=== PATIENT | female | born 1995 | race Caucasian/White ===

== ENCOUNTER 2020-10-21 14:01 | Inpatient (IN) | payer MEDICAID, SELFPAY ==
[2020-10-21 14:45] LABS: Amnisure Test RUPTURE DETECTED (No Rupture)
[2020-10-21 14:50] VITALS: BMI 34.2
[2020-10-21] MEDS ORDERED: Lidocaine 1% (PF) 30 ML VIAL SC PRN (15:40)
[2020-10-21] MEDS ORDERED: Ondansetron PF 4 MG/2 ML Vial IVP PRN (15:40)
[2020-10-21] MEDS ORDERED: hydrALAZINE 20 MG/ML VIAL SLOW IVP PRN (15:40)
[2020-10-21] MEDS ORDERED: Lactated Ringer's 1,000 ML IV SCH (15:45)
[2020-10-21] MEDS ORDERED: NS w/ Oxytocin 30 units 500 ML IVPB PRN (15:53)
[2020-10-21] MEDS ORDERED: Betamet Acet/Betamet Na Ph 30 MG/5 ML VIAL IM SCH (16:00)
[2020-10-21] MEDS ORDERED: Azithromycin 1,000 MG in Sodium Chloride 0.9% 500 ML IVPB SCH ×2 (16:00→17:00)
[2020-10-21] MEDS: Lactated Ringer's 1,000 ML IV SCH (17:15)
[2020-10-21] MEDS: Dexamethasone 4 mg/ml Vial IM SCH (18:22)
[2020-10-21 18:30] LABS: Hemoglobin 12.3 g/dL (12.0-15.5); Mean Corpuscular Hemoglobin 26.3 pg (27.0-33.0); Mean Corpuscular Volume 82.2 fl (81.6-98.3); Platelet Count 315 10x3/uL (150-450); RBC Distribution Width 14.3 % (11.5-14.5); Red Blood Cell (RBC) Count 4.67 10x6/uL (3.90-5.03); White Blood Cell (WBC) Count 9.1 10x3/uL (3.5-10.5)
[2020-10-21 19:04] LABS: Hep B Surf Ag Non-Reactive S/CO (NonReactive)
[2020-10-21 19:05] LABS: Syphilis Antibody Nonreactive (Nonreactive); Syphilis Antibody Index 0.02 S/CO (<1.00 Non-Reactive)
[2020-10-21 19:23] LABS: HBSAg Index 0.19 S/CO (0-0.99)
[2020-10-21] MEDS: Ampicillin 2 GM in Sodium Chloride 0.9% 100 ML IVPB SCH (20:08)
[2020-10-22] MEDS: Ampicillin 2 GM in Sodium Chloride 0.9% 100 ML IVPB SCH ×4 (02:07→18:54)
[2020-10-22] MEDS: Lactated Ringer's 1,000 ML IV SCH ×2 (02:08→08:02)
[2020-10-22] MEDS: Dexamethasone 4 mg/ml Vial IM SCH ×2 (06:06→18:54)
[2020-10-23] MEDS: Ampicillin 2 GM in Sodium Chloride 0.9% 100 ML IVPB SCH ×4 (03:00→19:03)
[2020-10-23] MEDS: Dexamethasone 4 mg/ml Vial IM SCH (06:54)
[2020-10-23] MEDS: Lactated Ringer's 1,000 ML IV SCH ×4 (09:34→15:50)
[2020-10-23] MEDS: AMOXicillin 250 MG CAP PO SCH (21:43)
[2020-10-24] MEDS: Lactated Ringer's 1,000 ML IV SCH ×4 (02:30→22:02)
[2020-10-24] MEDS: AMOXicillin 250 MG CAP PO SCH ×3 (06:07→19:54)
[2020-10-25] MEDS: AMOXicillin 250 MG CAP PO SCH ×3 (05:41→21:06)
[2020-10-25] MEDS: Lactated Ringer's 1,000 ML IV SCH ×3 (05:41→21:07)
[2020-10-26] MEDS: AMOXicillin 250 MG CAP PO SCH ×3 (05:14→22:02)
[2020-10-26] MEDS: Lactated Ringer's 1,000 ML IV SCH ×3 (05:15→22:02)
[2020-10-27] MEDS: AMOXicillin 250 MG CAP PO SCH ×3 (06:50→22:34)
[2020-10-27] MEDS: Lactated Ringer's 1,000 ML IV SCH ×3 (06:50→22:35)
[2020-10-28] MEDS: AMOXicillin 250 MG CAP PO SCH ×3 (05:47→21:28)
[2020-10-28] MEDS: Lactated Ringer's 1,000 ML IV SCH ×3 (09:39→21:29)
[2020-10-28] MEDS ORDERED: Lidocaine 1% (PF) 30 ML VIAL SC PRN (23:56)
[2020-10-28] MEDS ORDERED: Promethazine HCl 25 MG/ML VIAL IM PRN (23:56)
[2020-10-28] MEDS ORDERED: hydrALAZINE 20 MG/ML VIAL SLOW IVP PRN (23:56)
[2020-10-28] MEDS ORDERED: Ondansetron PF 4 MG/2 ML Vial IVP PRN (23:56)
[2020-10-28] MEDS ORDERED: NS / Oxytocin 40 units/1000ml 1,000 ML IV PRN (23:56)
[2020-10-29] MEDS: Misoprostol 100 MCG TAB VAG SCH ×6 (02:01→22:31)
[2020-10-29 07:46] LABS: Hemoglobin 11.6 g/dL (12.0-15.5); Mean Corpuscular Hemoglobin 26.8 pg (27.0-33.0); Mean Corpuscular Volume 83.6 fl (81.6-98.3); Mean Platelet Volume 9.8 fl (7.4-10.4); Platelet Count 256 10x3/uL (150-450); RBC Distribution Width 14.6 % (11.5-14.5); Red Blood Cell (RBC) Count 4.33 10x6/uL (3.90-5.03); White Blood Cell (WBC) Count 8.1 10x3/uL (3.5-10.5)
[2020-10-29] MEDS: Lactated Ringer's 1,000 ML IV SCH ×2 (08:25→18:23)
[2020-10-30] MEDS ORDERED: NS w/ Oxytocin 30 units 500 ML ONE (01:27)
[2020-10-30] MEDS: AMOXicillin 250 MG CAP PO SCH ×2 (02:33→14:29)
[2020-10-30] MEDS: Misoprostol 100 MCG TAB VAG SCH ×3 (02:36→14:30)
[2020-10-30] MEDS: Butorphanol Tartrate 1 MG/ML VIAL SLOW IVP PRN ×2 (03:50→06:41)
[2020-10-30] MEDS ORDERED: Fentanyl 4 mcg/Bup 0.1% Cadd 100 ML ONE (07:55)
[2020-10-30] MEDS ORDERED: Ondansetron PF 4 MG/2 ML Vial IVP PRN ×2 (08:35→12:40)
[2020-10-30] MEDS ORDERED: Naloxone HCl 0.4 mg/ml Vial IVP PRN ×2 (08:35)
[2020-10-30] MEDS: Lactated Ringer's 1,000 ML IV SCH (08:35)
[2020-10-30] MEDS ORDERED: Acetaminophen 325 MG TAB PO PRN (08:35)
[2020-10-30] MEDS ORDERED: diphenhydrAMINE 50 MG/ML VIAL IVP PRN (08:35)
[2020-10-30] MEDS ORDERED: Lactated Ringer's 500 ML IV PRN (08:35)
[2020-10-30] MEDS ORDERED: Promethazine HCl 25 MG/ML VIAL IM PRN ×2 (08:35→12:40)
[2020-10-30] MEDS ORDERED: ePHEDrine Sulfate 50 MG/10 ML VIAL SLOW IVP PRN (08:42)
[2020-10-30] MEDS ORDERED: Fentanyl 4 mcg/Bupivacaine 0.1% Cassette 100 ML EPIDURAL SCH (08:45)
[2020-10-30] MEDS ORDERED: Communication Order-Pharmacy FS SCH (08:45)
[2020-10-30] MEDS ORDERED: NS / Oxytocin 40 units/1000ml 1,000 ML IV SCH (12:40)
[2020-10-30] MEDS ORDERED: Misoprostol 200 MCG TAB VAG PRN (12:40)
[2020-10-30] MEDS ORDERED: Adacel (T-DAP) 0.5 ML SYRINGE IM ONE (12:40)
[2020-10-30] MEDS ORDERED: Bisacodyl 10 MG SUPP PR PRN (12:40)
[2020-10-30] MEDS ORDERED: diphenhydrAMINE 25 MG CAP PO PRN (12:40)
[2020-10-30] MEDS ORDERED: hydrALAZINE 20 MG/ML VIAL SLOW IVP PRN (12:40)
[2020-10-30] MEDS ORDERED: Milk Of Magnesia 30 ML UDCUP PO PRN (12:40)
[2020-10-30] MEDS ORDERED: Lanolin Ointment 7 GM TUBE TOP PRN (12:40)
[2020-10-30] MEDS: Ibuprofen 800 MG TAB PO SCH (14:59)
[2020-10-30] MEDS: Ferrous Sulfate 325 MG TAB PO SCH (18:07)
[2020-10-30] MEDS: Docusate Calcium (SURFAK) 240 MG CAP PO SCH (21:22)
[2020-10-31] MEDS: Ibuprofen 800 MG TAB PO SCH ×4 (00:45→21:43)
[2020-10-31] MEDS ORDERED: Morphine 4 MG/ML VIAL SLOW IVP PRN (09:03)
[2020-10-31] MEDS ORDERED: Morphine 2 MG/ML VIAL SLOW IVP PRN (09:10)
[2020-10-31] MEDS: Docusate Calcium (SURFAK) 240 MG CAP PO SCH ×2 (09:22→21:43)
[2020-10-31] MEDS: Prenatal Vitamin 1 TAB PO SCH (09:22)
[2020-10-31] MEDS: Ferrous Sulfate 325 MG TAB PO SCH ×2 (09:22→21:47)
[2020-10-31 09:34] LABS: #Eosinphils 0.1 10x3/uL (0.0-0.5); #Monocytes 0.8 10x3/uL (0.0-1.1); #Neutrophils 11.4 10x3/uL (1.5-8.4); %Basophils 0.3 % (0.0-2.0); %Eosinophils 0.6 % (0.0-6.0); %Lymphocytes 16.9 % (18.0-47.0); %Neutrophils 75.8 % (40.0-75.0); Hemoglobin 11.4 g/dL (12.0-15.5); Mean Corpuscular HGB CONC 32.1 g/dL (32.0-36.0); Mean Corpuscular Hemoglobin 26.7 pg (27.0-33.0); Mean Corpuscular Volume 83.1 fl (81.6-98.3); Mean Platelet Volume 10.1 fl (7.4-10.4); Platelet Count 234 10x3/uL (150-450); RBC Distribution Width 15.6 % (11.5-14.5); Red Blood Cell (RBC) Count 4.27 10x6/uL (3.90-5.03); White Blood Cell (WBC) Count 15.1 10x3/uL (3.5-10.5)
[2020-10-31] MEDS: Ampicillin/Sulbactam 3 GM in Sodium Chloride 0.9% 100 ML IVPB SCH (23:09)
[2020-11-01] MEDS: Ibuprofen 800 MG TAB PO SCH ×3 (05:29→22:07)
[2020-11-01] MEDS: Ampicillin/Sulbactam 3 GM in Sodium Chloride 0.9% 100 ML IVPB SCH ×4 (05:29→22:07)
[2020-11-01] MEDS: Docusate Calcium (SURFAK) 240 MG CAP PO SCH ×2 (08:21→22:06)
[2020-11-01] MEDS: Prenatal Vitamin 1 TAB PO SCH (08:21)
[2020-11-01] MEDS: Ferrous Sulfate 325 MG TAB PO SCH ×2 (11:29→17:11)
[2020-11-02] MEDS: Ibuprofen 800 MG TAB PO SCH ×2 (05:32→14:09)
[2020-11-02] MEDS: Ampicillin/Sulbactam 3 GM in Sodium Chloride 0.9% 100 ML IVPB SCH ×2 (05:32→11:37)
[2020-11-02 07:57] VITALS: BP 117/73; TEMP 98.8
[2020-11-02] MEDS: Ferrous Sulfate 325 MG TAB PO SCH (08:46)
[2020-11-02] MEDS: Docusate Calcium (SURFAK) 240 MG CAP PO SCH (08:47)
[2020-11-02] MEDS: Prenatal Vitamin 1 TAB PO SCH (08:47)
== END 2020-11-02 17:17 | disposition home or self-care (01) | DRG 805 ==
LOC: CSHLD/OP 14:01 → CSHLD 17:43 → CSHANTE 10-23 10:48 → CSHLD 10-29 02:09 → CSHPP 10-30 13:51
PROVIDERS: ADMIT Obstetrics & Gynecology; ATTEND Obstetrics & Gynecology
PROC: 10E0XZZ Delivery of Products of Conception, External Approach (ICD-10-PCS; principal; 2020-10-30)
DX: O42.913 Preterm premature rupture of membranes, unspecified as to length of time between rupture and onset of labor, third trimester (principal); O60.13X0 Preterm labor second trimester with preterm delivery third trimester, not applicable or unspecified; Z37.0 Single live birth; O75.3 Other infection during labor; O10.02 Pre-existing essential hypertension complicating childbirth; Z20.822 Contact with and (suspected) exposure to COVID-19; O71.82 Other specified trauma to perineum and vulva; O76 Abnormality in fetal heart rate and rhythm complicating labor and delivery; Z3A.32 32 weeks gestation of pregnancy
CPT/HCPCS: 36415; 51702; 59025; 76815; 76856; 82805; 84112; 85025; 85027; 86780; 86850; 86900; 86901; 87081; 87340; 99285; J0290; J0295; J0456; J0595; J1100; J2270; J2590; J3490; J7030